=== PATIENT | male | born 1990 | race African-American/Black ===

== ENCOUNTER 2017-01-23 11:28 | Observation (INO) | payer MEDICAID ==
[2017-01-23] MEDS ORDERED: NALOXONE HCL 0.4 MG/ML INJ ONE ×2 (11:35→11:42)
--- NOTE | 2017-01-23 11:40 | CPEKG ---
Heart Rate: 103 RR Interval: 583 P-R Interval: 124 QRSD Interval: 78 QT Interval: 336 QTC Interval: 440 P [place]top[place]: 64 QRS [place]top[place]: 83 T Wave [place]: 19 EKG Severity - OTHERWISE NORMAL ECG - EKG Impression: SINUS TACHYCARDIA Electronically Signed By: Jose Peacock 23-Jan-2017 15:08:03
[2017-01-23] MEDS ORDERED: NALOXONE HCL 0.4 MG/ML INJ IVP ONE ×2 (11:42→13:03)
--- NOTE | 2017-01-23 12:23 | EDPHY ---
H & P Stated Complaint: seizure Source: Patient, RN/MD, EMS - Personal History Current Tetanus/Diphtheria Vaccine: Unsure Current Tetanus Diphtheria and Acellular Pertussis (TDAP): Unsure - Medical/Surgical History Hx Asthma: No Hx Chronic Respiratory Disease: No Hx Diabetes: No Hx Cardiac Disease: No Hx Renal Disease: No Hx Cirrhosis: No Hx Alcoholism: No Hx HIV/AIDS: No Hx Splenectomy or Spleen Trauma: No HPI/ROS: CHIEF COMPLAINT: Possible seizure HISTORY OF PRESENT ILLNESS: Patient arrives by EMS with reports of possible seizure. He does not recall the exact details of the event. EMS says that he awoke told him he was having a seizure and told him his name, and then continued to seize. Patient says that this morning he took "a xanax bar and some oxy." He does not know the mg on the Xanax. He does know that it was a 30 mg OxyContin. He does not normally take his medications. He stated taken because of chronic knee pain. He denies any ingestion of multiple pills. He denies any intent to harm himself. No other history obtainable as he is not recall the events of the morning. REVIEW OF SYSTEMS: Ten systems reviewed and are negative unless otherwise noted in the HPI PERTINENT MEDICAL HISTORY: SOCIAL HISTORY: EXAMINATION General Appearance: Alert, no distress, somnolent but easily awakes with verbal stimuli and spontaneously Head: normocephalic, atraumatic Eyes: Pupils equal and round, no conjunctival pallor or injection ENT, Mouth: Mucous membranes moist. Uvula midline. Neck: Normal inspection, supple, non-tender Respiratory: Lungs are clear to auscultation. No wheezing, rhonchi or crackles. Cardiovascular: Regular rate and rhythm. No murmur Gastrointestinal: Abdomen is soft and nontender Back: non-tender, no bony abnormalities Neurological: GCS 15. A&O, nonfocal, no seizure-like activity. No pronator drift. No dysmetria Skin: Warm and dry, no rash Extremities: Nontender, no pedal edema Psychiatric: Mood and affect normal DIFFERENTIAL DIAGNOSES: Including but not limited to accidental overdose, seizure, benzodiazepine overdose, somnolence, dehydration, hyponatremia, substance abuse MDM: 12:20 p.m. Reports of possible seizure, but this is more likely an accidental overdose on OxyContin. Patient was somnolent and had an OPA airway upon arrival. Narcan was administered any immediately woke up and became conversant with this. We have been monitoring him as he has been somnolent. No seizure-like activity here. 12:50 p.m. Patient remains somnolent. He intermittently awakes. He does have mild hypoxia when he falls asleep. This is easily resolved when he wakes up. Will continue to monitor. 1:30 p.m. Patient remained somnolent but wakes easily. He has been hypoxic when he falls asleep and also minimally on room air. The lowest value I witnessed was 86% on room air while awake. This is he has resolved to 1-2 L and continue to monitor. 2:00 p.m. Persistent somnolence hypoxia. I suspect patient may need observation and possibly further Narcan. I discussed the case with Dr. Peacock. He recommends admission for observation. 2:12 p.m. I have discussed the case with hospitalist Dr. Vallecillo. She will admit the patient to step-down bed. He is admitted in stable condition with intermittent hypoxia on room air. SUPERVISION: Patient was evaluated in conjunction with the supervising physician. Please see their note for details. (Galen Villarreal) Constitutional: Initial Vital Signs Temperature (C) 36.4 C 01/23/17 11:32 Heart Rate 106 H 01/23/17 11:32 Respiratory Rate 20 01/23/17 11:32 Blood Pressure 123/75 H 01/23/17 11:32 O2 Sat (%) 95 01/23/17 11:32 O2 Delivery Mode Room Air O2 (L/minute) 15 Allergies/Adverse Reactions: No Known Allergies Allergy (Unverified 01/23/17 11:41) Medical Decision Making Other Provider: Independent physician documentation I evaluated and participated in the management of the patient. I also evaluated the patient independently. My co-signature indicates that I have reviewed this chart and I agree with the findings and plan of care as documented. My personal H&P findings include: The patient presents to the ED with persistent somnolence after using narcotic medications earlier today. The patient did receive Narcan with some improvement of his respiratory status. Unfortunately the patient developed recurrent hypoxemia while sleeping. The patient will require admission to the hospital in the setting of his prolonged sedation and ongoing intermittent hypoxemia. (Jose Peacock) - Data Points Laboratory Results: Laboratory Results 01/23/17 11:32 01/23/17 11:32 Sodium 138 mEq/L mEq/L (134-144) Potassium 4.3 mEq/L mEq/L (3.5-5.2) Chloride 102 mEq/L mEq/L (97-110) Carbon Dioxide 21 mEq/l L mEq/l (22-31) Anion Gap 15 mEq/L mEq/L (8-16) BUN 11 mg/dL mg/dL (7-23) Creatinine 1.3 mg/dL mg/dL (0.7-1.3) Estimated GFR > 60 Glucose 201 mg/dL H mg/dL (70-100) Calcium 9.8 mg/dL mg/dL (8.5-10.4) Prolactin 28.8 ng/mL H ng/mL (3.7-17.9) Medications Given: Discontinued Medications Naloxone HCl (Narcan) 0.4 mg IVP EDNOW ONE Stop: 01/23/17 11:43 Last Admin: 01/23/17 11:44 Dose: 0.4 mg Naloxone HCl (Narcan) 0.4 mg IVP EDNOW ONE Stop: 01/23/17 13:04 Last Admin: 01/23/17 13:03 Dose: 0.4 mg Departure - Departure Disposition: [facility] Inpatient Acute Clinical Impression: Hypoxia Accidental overdose Qualifiers: Encounter type: initial encounter Qualified Code(s): T50.901A - Poisoning by unspecified drugs, medicaments and biological substances, accidental ( unintentional), initial encounter Condition: Good
[2017-01-23 13:14] LABS: ANION GAP 15 mEq/L (8-16); CALCIUM 9.8 mg/dL (8.5-10.4); CARBON DIOXIDE 21 mEq/l (22-31); CHLORIDE 102 mEq/L (97-110); CREATININE 1.3 mg/dL (0.7-1.3); GLOMERULAR FILTRATION RATE > 60; GLUCOSE 201 mg/dL (70-100); POTASSIUM 4.3 mEq/L (3.5-5.2); SODIUM 138 mEq/L (134-144)
[2017-01-23 13:31] LABS: PROLACTIN 28.8 ng/mL (3.7-17.9)
[2017-01-23] MEDS ORDERED: ONDANSETRON 4 MG/2 ML VIAL IVP PRN (16:04)
[2017-01-23] MEDS ORDERED: ACETAMINOPHEN 325 MG TAB PO PRN (16:04)
[2017-01-23] MEDS ORDERED: ONDANSETRON DISINTEGRATING 4 MG TAB PO PRN (16:04)
--- NOTE | 2017-01-23 16:47 | GHP ---
[f rep st] HISTORY AND PHYSICAL DATE OF ADMISSION: 01/23/2017 CHIEF COMPLAINT: Somnolence. HISTORY OF PRESENT ILLNESS: The patient is a 26-year-old male with a history of reported ADD who presented to the emergency department via EMS with reports of a possible seizure. He was unable to give the history himself as he was quite somnolent on arrival. Per the EMS report, they arrived to the scene and he woke up and told them he was having a seizure. However, EMS did not report a witnessed seizure. Furthermore, there were no witnesses at the scene that described seizure activity. He went on to state that he took 30 mg of OxyContin and a Xanax bar ,which he bought from an unknown person on the street. He does not know the milligram dosage of the Xanax nor does he know what else might be in it. He has a history of opioid use in the past but states he has not used any recently until this morning. He states he is prescribed Adderall by a clinician in [place]. He is currently traveling here as a [place]. He reports this was not an intentional overdose, and he took these medications this morning because he was "partying." He denies suicidality or intent to self harm. He denies any fevers , headaches, vision changes, chest pain, shortness of breath, nausea, vomiting, or diarrhea. In the emergency department, there was no evidence of seizure activity. However , he was quite somnolent and received a total of 2 doses of Narcan. He reportedly woke right up after the Narcan doses. At the time of my evaluation, he is requiring 1 L of oxygen; and given his mild persistent hypoxemia, he is admitted to the hospital for observation. PAST MEDICAL HISTORY: ADD. 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 He is traveling here from [place]. He endorses cigarettes, marijuana, and a history of opioid use. He denies injection drug use. MEDICATIONS: Adderall. ALLERGIES: He has no known drug allergies. FAMILY HISTORY: Reviewed. The patient reports he is a foster child and does not know his family history. REVIEW OF SYSTEMS: A 10-point review of systems was performed and is negative except as per HPI. OBJECTIVE: VITAL SIGNS: Temperature is 36.9, blood pressure 144/78, heart rate 80, respiratory rate 16. He is 96% on 2 L of oxygen. GENERAL: The patient is awake, alert, and oriented, in no acute distress. HEENT: Head is atraumatic, normocephalic. Pupils equal, round, reactive to light. Extraocular muscles are intact. Oropharynx is clear. Mucous members are moist. NECK: Supple. There is no JVD. HEART: Regular rate and rhythm without murmur. LUNGS: Clear to auscultation bilaterally. ABDOMEN: Soft, nondistended, and nontender with normoactive bowel tones. EXTREMITIES: Without cyanosis, clubbing, or edema. NEUROLOGIC: Grossly nonfocal. His speech is fluent. There are no focal neurological deficits. LABORATORY DATA: Basic metabolic panel is remarkable for a CO2 of 21, glucose of 201, and a prolactin of 28.8. EKG shows sinus tachycardia with a heart rate of 103. There are no ST-segment or T-wave changes concerning for acute ischemia. ASSESSMENT AND PLAN: The patient is a 26-year-old male with a history of polysubstance abuse who presented to the emergency department with somnolence and hypoxemia after an intentional overdose. 1. Unintentional polysubstance overdose. The patient reports taking 30 mg of OxyContin plus a Xanax bar with unknown ingredients. He required 2 doses of Narcan in the emergency department. He is currently mentating clearly, and I do not believe he requires any further Narcan doses. However, given his mild hypoxemia and intermittent somnolence, he is admitted to the step-down unit for close monitoring. He denies suicidality. A urine drug screen is ordered. 2. Possible seizure. It is unclear if he had seizure activity at the scene. I do not see any findings on physical exam to support this, though he does interestingly have an elevated prolactin. We will place him on seizure precautions and do regular neuro checks. 3. Hypoxemia. Initially thought due to opiate overdose, though further review (pt has 2 separate charts in [facility]) reveals recent admission for URI symptoms with wheezing. I re-examined him this evening and he is now wheezing quite a bit. Will add duonebs and oral Prednisone. Needs outpatient PFT's. 4. DVT prophylaxis. Patient is low risk. We will defer pharmacologic prophylaxis for now. CODE STATUS: Patient is full code. DISPOSITION: The patient is admitted to observation status and will likely be a candidate for discharge in the morning if his vital signs are stable. /[id number]/MODL MTDD
[2017-01-23 18:29] LABS: PHENCYCLIDINE URINE BCH < 6 ng/ml (NEGATIVE); PHENCYCLIDINE URINE BCH NEGATIVE (NEGATIVE)
[2017-01-23 18:42] LABS: TETRAHYDROCANNABINOL URINE 236 ng/mL (NEGATIVE)
[2017-01-23] MEDS ORDERED: ALBUTEROL 3 ML DEYVIAL ONE (18:49)
[2017-01-23] MEDS ORDERED: ALBUTEROL 3 ML DEYVIAL IH PRN (18:53)
[2017-01-23] MEDS: predniSONE 20 MG TAB PO SCH (20:25)
[2017-01-23] MEDS: IPRATROPIUM/ALBUTEROL 3 ML DEYVIAL IH SCH ×2 (21:54→22:46)
[2017-01-23] MEDS: BUDESONIDE 180 MCG MDI IH SCH (23:02)
[2017-01-24] MEDS: IPRATROPIUM/ALBUTEROL 3 ML DEYVIAL IH SCH ×2 (03:33→08:18)
[2017-01-24] MEDS: predniSONE 20 MG TAB PO SCH (08:39)
[2017-01-24 08:41] VITALS: BP 145/81; TEMP 98.6
--- NOTE | 2017-01-24 08:53 | HOSPPROG ---
Hospitalist Progress Note Assessment/Plan: #Polysubstance overdose: accidental. Hemodynamically stable. Counseled on cessation #Acute encephalopathy: resolved #Disp: DC today Subjective: no CP Objective: Vital Signs Temp Pulse Resp BP Pulse Ox 37.0 C 82 16 145/81 H 95 01/24/17 08:00 01/24/17 08:00 01/24/17 08:00 01/24/17 08:00 01/24/17 08:00 01/23/17 01/24/17 01/25/17 05:59 05:59 05:59 Intake Total 300 Balance 300 - Physical Exam Constitutional: no apparent distress Eyes: PERRL Ears, Nose, Mouth, Throat: moist mucous membranes Cardiovascular: regular rate and rhythym Respiratory: no respiratory distress, no rales or rhonchi Gastrointestinal: normoactive bowel sounds, soft, non-tender abdomen Skin: warm Musculoskeletal: full muscle strength Neurologic: AAOx3, CN II-XII Intact Psychiatric: interacting appropriately ICD10 Worksheet Patient Problems: Problems Problem Status Onset Accidental overdose Acute Hypoxia Acute
[2017-01-24] MEDS ORDERED: IPRATROPIUM/ALBUTEROL 3 ML DEYVIAL IH SCH (09:00)
[2017-01-24] MEDS: BUDESONIDE 180 MCG MDI IH SCH (09:09)
[2017-01-24 09:20] VITALS: PULSE 92; RESP 18; O2SAT 100
--- NOTE | 2017-01-24 11:51 | GDS ---
[f rep st] DISCHARGE SUMMARY DISCHARGE DIAGNOSES: Polysubstance ingestion, questionable seizure, acute encephalopathy, acute hypoxic respiratory failure. HISTORY OF PRESENT ILLNESS: Patient is a 26-year-old male with reported history of ADD who presented to the ER with possible seizure. He was unable to give a full history, as he was quite somnolent on arrival. No seizure was witnessed in the field. He took 30 mg of OxyContin and a Xanax bar, which he bought from an unknown person on the street. He has a history of opioid use in the past, but has not used any recently. He uses Adderall prescribed by clinician in [place]. 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 He took these medications because he was partying. Denies any suicidal or homicidal ideations. HOSPITAL COURSE BY PROBLEM: 1. Unintentional polysubstance ingestion. He initially required Narcan in the ER x2. He is currently hemodynamically stable without any symptoms. Counseled on cessation 2. Acute toxic encephalopathy: due to above. There were no witnessed seizures here. A&O x 3 today. 3. Acute hypoxia secondary to opioids. This has resolved. Questionable history of asthma. He states he does use a couple inhalers. FOLLOW UP: He should follow up with a PCP. DISPOSITION: Patient is stable for discharge. /[id number]/MODL MTDD
== END 2017-01-24 11:57 | disposition home or self-care (01) ==
LOC: EDBD 11:28 → F2N 16:53
PROVIDERS: ADMIT Hospitalist; ATTEND Internal Medicine
DX: T40.2X1A Poisoning by other opioids, accidental (unintentional), initial encounter (principal); T42.4X1A Poisoning by benzodiazepines, accidental (unintentional), initial encounter; G92 Toxic encephalopathy; J96.01 Acute respiratory failure with hypoxia; F98.8 Other specified behavioral and emotional disorders with onset usually occurring in childhood and adolescence; M25.569 Pain in unspecified knee; F12.90 Cannabis use, unspecified, uncomplicated; F17.210 Nicotine dependence, cigarettes, uncomplicated; F11.21 Opioid dependence, in remission
CPT/HCPCS: 93005; 96374; 96376; 99285; G0378; 80307; G0480; J2310